=== PATIENT | female | born 1955 | race Two or more races ===

== ENCOUNTER 2020-04-13 09:43 | Emergency (ER) | payer OTHER ==
[~2020-04-13] VITALS: Ht 149.9 cm; Wt 74.8 kg
[2020-04-13] MEDS ORDERED: INTESTINEX680 M1 PO (16:09)
[2020-04-13] MEDS ORDERED: KETO10TA2 PO (16:09)
[2020-04-13] MEDS ORDERED: PEPCID AC20 MG PO (16:09)
[2020-04-13] MEDS ORDERED: IBUPROFEN200 MG (16:15)
== END 2020-04-13 16:25 ==
LOC: ER 09:43
DX: K30 Functional dyspepsia (principal); R14.0 Abdominal distension (gaseous); Z20.828 Contact with and (suspected) exposure to other viral communicable diseases

== ENCOUNTER 2020-10-12 18:36 | Emergency (ER) | payer OTHER ==
[~2020-10-12] VITALS: Ht 149.9 cm; Wt 74.8 kg
[~2020-10-12 18:36] MED LIST: IBUPROFEN200 MG; INTESTINEX680 M1 PO; KETO10TA2 PO; PEPCID AC20 MG PO
== END 2020-10-13 00:01 | disposition home or self-care (01) ==
LOC: ER 18:36
DX: J02.8 Acute pharyngitis due to other specified organisms (principal); M25.552 Pain in left hip; I10 Essential (primary) hypertension

== ENCOUNTER 2020-11-17 10:39 | Emergency (ER) | payer OTHER ==
[~2020-11-17] VITALS: Ht 149.9 cm; Wt 79.8 kg
[2020-11-17] MEDS ORDERED: EVOCLIN100 GM (11:13)
[2020-11-17] MEDS ORDERED: KETO10TA2 PO (14:13)
[2020-11-17] MEDS ORDERED: NORFLEX100MG PO (14:13)
== END 2020-11-17 14:30 | disposition home or self-care (01) ==
LOC: ER 10:39
DX: R10.31 Right lower quadrant pain (principal)

== ENCOUNTER 2021-01-15 16:14 | Emergency (ER) | payer OTHER ==
[~2021-01-15] VITALS: Ht 152.4 cm; Wt 93.0 kg
[~2021-01-15 16:14] MED LIST changes: +EVOCLIN100 GM; +NORFLEX100MG PO
[2021-01-15] MEDS ORDERED: CORTISPORIN EAR10 M1 OPHT (20:48)
[2021-01-15] MEDS ORDERED: LEVOFLOXACIN500 MG PO (20:48)
== END 2021-01-15 21:06 | disposition home or self-care (01) ==
LOC: ER 16:14
DX: R42 Dizziness and giddiness (principal); H60.8X3 Other otitis externa, bilateral; N39.0 Urinary tract infection, site not specified; Z11.52 Encounter for screening for COVID-19

== ENCOUNTER 2021-04-01 15:53 | Emergency (ER) | payer OTHER ==
[~2021-04-01] VITALS: Ht 149.9 cm; Wt 77.1 kg
[~2021-04-01 15:53] MED LIST changes: +CORTISPORIN EAR10 M1 OPHT; +LEVOFLOXACIN500 MG PO
== END 2021-04-01 20:44 | disposition home or self-care (01) ==
LOC: ER 15:53
DX: U07.1 COVID-19 (principal); F41.8 Other specified anxiety disorders; N39.0 Urinary tract infection, site not specified

== ENCOUNTER 2021-08-28 21:20 | Emergency (ER) | payer OTHER ==
[~2021-08-28] VITALS: Ht 149.9 cm; Wt 76.2 kg
[2021-08-29] MEDS ORDERED: CEPHALEXIN500 MG PO ×2 (04:38)
[2021-08-29] MEDS ORDERED: KETO10TA2 PO ×2 (04:38)
== END 2021-08-29 04:52 ==
LOC: ER 21:20
DX: N39.0 Urinary tract infection, site not specified (principal); R10.9 Unspecified abdominal pain

== ENCOUNTER 2022-01-30 20:35 | Emergency (ER) | payer OTHER ==
[~2022-01-30] VITALS: Ht 149.9 cm; Wt 72.6 kg
[~2022-01-30 20:35] MED LIST changes: +CEPHALEXIN500 MG PO
[2022-01-30] MEDS ORDERED: DICLOFENAC POTA25 MG PO (23:56)
[2022-01-30] MEDS ORDERED: ZYRTEC10 MG PO (23:56)
[2022-01-30] MEDS ORDERED: CORTISPORIN EAR10 M1 OPHT (23:56)
[2022-01-31] MEDS ORDERED: ACETAMINOPHEN650 M2 (16:13)
== END 2022-01-31 00:25 | disposition home or self-care (01) ==
LOC: ER 20:35
DX: J30.9 Allergic rhinitis, unspecified (principal); R51.9 Headache, unspecified; J06.9 Acute upper respiratory infection, unspecified; Z20.822 Contact with and (suspected) exposure to COVID-19

== ENCOUNTER 2022-08-02 16:47 | Emergency (ER) | payer OTHER ==
[~2022-08-02] VITALS: Ht 124.5 cm; Wt 77.1 kg
[~2022-08-02 16:47] MED LIST changes: +ACETAMINOPHEN650 M2; +DICLOFENAC POTA25 MG PO; +ZYRTEC10 MG PO
== END 2022-08-02 19:52 | disposition home or self-care (01) ==
LOC: ER 16:47
DX: N39.0 Urinary tract infection, site not specified (principal)

== ENCOUNTER 2022-11-27 18:36 | Emergency (ER) | payer OTHER ==
[~2022-11-27] VITALS: Ht 149.9 cm; Wt 74.8 kg
== END 2022-11-27 22:26 | disposition home or self-care (01) ==
LOC: ER 18:36
DX: R53.81 Other malaise (principal); K30 Functional dyspepsia; K29.70 Gastritis, unspecified, without bleeding; Z20.822 Contact with and (suspected) exposure to COVID-19
CPT/HCPCS: 36415; 96365; 99283; J3490

== ENCOUNTER 2023-10-20 18:54 | Emergency (ER) | payer OTHER ==
[~2023-10-20] VITALS: Ht 149.9 cm; Wt 81.6 kg
[2023-10-20] MEDS ORDERED: CEFTRIAXONE SODIUM 1,000 MG VIAL IM STA (21:44)
[2023-10-20] MEDS ORDERED: DEXAMETHASONE SODIUM PHOSPHATE 4 MG/ML VIAL IM STA (21:44)
== END 2023-10-20 21:59 | disposition home or self-care (01) ==
LOC: ER 18:55
DX: K11.5 Sialolithiasis (principal); H60.90 Unspecified otitis externa, unspecified ear
CPT/HCPCS: 96372; 99282; J0696; J1100

== ENCOUNTER 2024-01-01 21:57 | Emergency (ER) | payer OTHER ==
[~2024-01-01] VITALS: Ht 157.5 cm; Wt 90.7 kg
[2024-01-01] MEDS ORDERED: KETOROLAC TROMETHAMINE 60 MG VIAL IM ONE ×2 (23:30→23:31)
[2024-01-01 23:45] LABS: HEMATOCRIT 38.1 % (36.0-45.00); HEMOGLOBIN 12.1 g/dL (12.0-15.00); MEAN CORPUSCULAR HEMOGLOBIN 21.1 pg (27.00-32.0); MEAN CORPUSCULAR HGB CONC 31.8 g/dl (32.0-36.0); PLATELET COUNT 271 K/uL (150-450); RED BLOOD COUNT 5.75 M/uL (4.00-6.00); RED CELL DISTRIBUTION WIDTH 15.8 % (11.5-14.5)
[2024-01-01 23:46] LABS: MEAN CELL VOLUME 66.4 fL (80.00-100.00)
[2024-01-02] MEDS ORDERED: DOLOGESIC-DF 51 EACH PO (03:07)
[2024-01-02] MEDS ORDERED: CORTISPORIN EAR10 M1 OPHT (03:07)
== END 2024-01-02 03:25 ==
LOC: ER 21:58
PROVIDERS: Preventive Medicine Public Health & General Preventive Medicine
DX: S99.812A Other specified injuries of left ankle, initial encounter (principal); S99.811A Other specified injuries of right ankle, initial encounter; X58.XXXA Exposure to other specified factors, initial encounter; Y93.89 Activity, other specified; Y92.89 Other specified places as the place of occurrence of the external cause; Y99.9 Unspecified external cause status; H93.93 Unspecified disorder of ear, bilateral; Z85.3 Personal history of malignant neoplasm of breast
CPT/HCPCS: 36415; 73600; 96372; 99283; J1885

== ENCOUNTER 2024-04-30 21:08 | Emergency (ER) | payer OTHER ==
[~2024-04-30] VITALS: Ht 149.9 cm; Wt 75.3 kg
[~2024-04-30 21:08] MED LIST changes: +DOLOGESIC-DF 51 EACH PO
[2024-04-30] MEDS ORDERED: CEFTRIAXONE SODIUM 1,000 MG VIAL IM STA (22:42)
[2024-04-30] MEDS ORDERED: KETOROLAC TROMETHAMINE 60 MG VIAL IM STA (22:43)
[2024-04-30] MEDS ORDERED: MECLIZINE HCL 25 MG TABLET PO STA (22:44)
[2024-04-30] MEDS ORDERED: KETOROLAC TROMETHAMINE 30 MG VIAL ONE (22:56)
[2024-04-30] MEDS ORDERED: CEFTRIAXONE SODIUM 1,000 MG VIAL ONE (22:57)
[2024-04-30] MEDS ORDERED: MECLIZINE HCL 25 MG TABLET PO ONE (22:57)
== END 2024-04-30 23:05 | disposition home or self-care (01) ==
LOC: ER 21:08
DX: R53.81 Other malaise (principal); J06.9 Acute upper respiratory infection, unspecified
CPT/HCPCS: 96372; 99282; J0696; J1885

== ENCOUNTER 2024-09-29 20:22 | Emergency (ER) | payer OTHER ==
[~2024-09-29] VITALS: Ht 149.9 cm; Wt 78.0 kg
[2024-09-30] MEDS ORDERED: KETOROLAC TROMETHAMINE 60 MG VIAL IM STA (05:12)
[2024-09-30] MEDS ORDERED: CEFTRIAXONE SODIUM 1,000 MG VIAL IM STA (05:13)
[2024-09-30] MEDS ORDERED: LIDOCAINE HCL 50 ML BOTT TOP STA (05:14)
[2024-09-30] MEDS ORDERED: CEFTRIAXONE SODIUM 1,000 MG VIAL ONE (05:15)
[2024-09-30] MEDS ORDERED: KETOROLAC TROMETHAMINE 60 MG VIAL IM ONE (05:15)
== END 2024-09-30 05:38 | disposition home or self-care (01) ==
LOC: ER 20:22
DX: J06.9 Acute upper respiratory infection, unspecified (principal)
CPT/HCPCS: 96372; 99282; J0696; J1885

== ENCOUNTER 2025-03-30 12:47 | Emergency (ER) | payer OTHER ==
[~2025-03-30] VITALS: Ht 160 cm; Wt 65.8 kg
[2025-03-30] MEDS ORDERED: CEFTRIAXONE SODIUM 1,000 MG VIAL IM ONE (17:00)
[2025-03-30] MEDS ORDERED: CEFTRIAXONE SODIUM 1,000 MG VIAL ONE (17:01)
[2025-03-30] MEDS ORDERED: LIDOCAINE HCL 1% 10ML VIAL ONE (17:02)
[2025-03-30 17:29] LABS: BASO % 0.7 % (0.1-1.2); EOS # 0.12 (0.04-0.54); EOS % 1.4 % (0.7-7.0); LYMPH # 2.29 (1.18-3.74); LYMPH % 26.6 % (19.3-53.1); MEAN PLATELET VOLUME 10.80 fl (9.4-12.4); MONO # 0.80 (0.24-0.82); MONO % 9.3 % (4.7-12.5); NEUT # 5.32 (1.56-6.13); NEUT % 61.8 % (34.0-71.1); RED CELL DISTRIBUTION WIDTH 15.8 % (11.6-14.4)
[2025-03-30 18:18] LABS: ALT/SGPT 28.0 U/L (12-78); AST/SGOT 22.0 U/L (15-37); BILIRUBIN TOTAL 0.26 mg/dL (0.3-1.2); BUN CREA RATIO 29.0 (7.0-25.0); CREATININE SERUM 0.7 mg/dL (0.55-1.02); GFR 83.21; GLOBULINA 4.0 G/DL (2.4-3.5); GLUCOSE FASTING 96.0 mg/dL (65-100); OSMOLALITY SERUM 284.0 MOSM/KG (275-295)
[2025-03-30] MEDS ORDERED: AMOX-CLAV 875-1 EACH PO (18:56)
[2025-03-30] MEDS ORDERED: CIPROFLOX-DEXA7.5 ML OT (18:56)
== END 2025-03-30 19:21 | disposition home or self-care (01) ==
LOC: ER 12:48
PROVIDERS: General Practice
DX: H65.191 Other acute nonsuppurative otitis media, right ear (principal); Z85.3 Personal history of malignant neoplasm of breast
CPT/HCPCS: 36415; 96372; 99282; J0696

== ENCOUNTER 2025-04-05 02:21 | Emergency (ER) | payer OTHER ==
[~2025-04-05] VITALS: Ht 149.9 cm; Wt 72.6 kg
[~2025-04-05 02:21] MED LIST changes: +AMOX-CLAV 875-1 EACH PO; +CIPROFLOX-DEXA7.5 ML OT
[2025-04-05 02:36] VITALS: BP 140/70; O2SAT 97
== END 2025-04-05 06:20 | disposition home or self-care (01) ==
LOC: ER 02:21
DX: R51.9 Headache, unspecified (principal)